=== PATIENT | female | born 1990 | race Caucasian/White ===

== ENCOUNTER → 2016-10-01 | Outpatient (CLI) | payer OTHER | LOC: MW.CHOBGYN 17:52 | PROVIDERS: ATTEND Obstetrics & Gynecology | DX: Z34.90 Encounter for supervision of normal pregnancy, unspecified, unspecified trimester (principal) | CPT/HCPCS: 87480; 87510; 87660 ==

== ENCOUNTER → 2016-11-03 | Outpatient (CLI) | payer OTHER | LOC: MW.CHOBGYN 07:52 | PROVIDERS: ATTEND Obstetrics & Gynecology | DX: Z34.90 Encounter for supervision of normal pregnancy, unspecified, unspecified trimester (principal) | CPT/HCPCS: 81003 ==

== ENCOUNTER 2017-03-31 09:50 | Observation (INO) | payer OTHER ==
[2017-03-31] MEDS: Betamethasone Acetate/Betamethasone Sod Phosphate 30 MG/5 ML MDV IM SCH (13:39)
[2017-03-31] MEDS ORDERED: Nicotine 14 MG/24 Hr Patch TRDERM ONE (19:58)
[2017-04-01 06:13] LABS: CHLORIDE,CL 108 mmol/L (98-110); SODIUM,NA 136 mmol/L (136-146)
--- NOTE | 2017-04-01 10:48 | US ---
EXAMINATION: Biophysical profile HISTORY: Abnormal biophysical profile COMPARISON: 03/31/2017 TECHNIQUE: Grayscale, color Doppler, and spectral Doppler images obtained transabdominally. FINDINGS: There is a single live intrauterine . The amniotic fluid level is normal. Heart ra te is 128 bpm. There is positive breathing, movement, and tone. IMPRESSION: Biophysical profile 01/20.
[2017-04-01] MEDS ORDERED: Nicotine 14 MG/24 Hr Patch TRDERM ONE (11:21)
[2017-04-01] MEDS: Betamethasone Acetate/Betamethasone Sod Phosphate 30 MG/5 ML MDV IM SCH (14:02)
== END 2017-04-01 21:00 | disposition home or self-care (01) ==
LOC: MW.OBCHECK 09:50 → MW.OB 10:04 → MW.OBCHECK 13:43
PROVIDERS: ADMIT Obstetrics & Gynecology; ATTEND Obstetrics & Gynecology
DX: O14.03 Mild to moderate pre-eclampsia, third trimester (principal); O13.3 Gestational [pregnancy-induced] hypertension without significant proteinuria, third trimester; Z3A.36 36 weeks gestation of pregnancy; Z88.1 Allergy status to other antibiotic agents; Z98.890 Other specified postprocedural states; F17.210 Nicotine dependence, cigarettes, uncomplicated
CPT/HCPCS: 36415; 59025; 76818; 76819; 80053; 84550; 85025; 85027; 85384; 85610; 85730; 96372; A9270; G0378; J0702

== ENCOUNTER 2017-04-02 14:57 | Inpatient (IN) | payer OTHER ==
[2017-04-02] MEDS ORDERED: Sodium Chloride 0.9% 10 ML Syringe FLUSH PRN ×2 (15:02→18:39)
[2017-04-02] MEDS ORDERED: Lidocaine 1% 50 ML MDV INJECT PRN (15:02)
[2017-04-02] MEDS ORDERED: Butorphanol 1 MG/ML SDV IVPUSH PRN (15:02)
[2017-04-02] MEDS ORDERED: Water For Irrigation,Sterile 1,000 ML Container IRR PRN (15:02)
[2017-04-02] MEDS ORDERED: Misoprostol 200 MCG Tab PO PRN (15:02)
[2017-04-02] MEDS ORDERED: Nalbuphine 10 MG/1 ML Vial IVPUSH PRN (15:02)
[2017-04-02] MEDS ORDERED: Sodium Chloride 0.9% 2.5 ML Syringe FLUSH PRN ×2 (15:02→18:39)
[2017-04-02] MEDS ORDERED: Methylergonovine 0.2 MG/1 ML Amp IM PRN (15:02)
[2017-04-02] MEDS ORDERED: Carboprost Tromethamine 250 MCG/1 ML Amp IM PRN (15:02)
[2017-04-02] MEDS ORDERED: Oxytocin/0.9 % Sodium Chloride 30 UNIT/500 ML BAG IV SCH ×2 (15:15→18:45)
[2017-04-02] MEDS ORDERED: Terbutaline 1 MG/ML SDV SUBCUT PRN (18:36)
[2017-04-02] MEDS ORDERED: Magnesium Sulfate/Water 4 GM in Premix Bag 1 BAG IV ONE (18:39)
[2017-04-02] MEDS ORDERED: Calcium Gluconate 10% 1 GM/10 ML SDV IVPUSH PRN (18:39)
[2017-04-02 18:45] LABS: CHLORIDE,CL 108 mmol/L (98-110); SODIUM,NA 137 mmol/L (136-146)
[2017-04-02] MEDS ORDERED: Misoprostol 25 MCG (1/4 of 100 MCG) Tab VAG SCH (18:45)
[2017-04-02] MEDS ORDERED: Sodium Chloride 0.9% 1,000 ML IV SCH (19:00)
[2017-04-02] MEDS: Magnesium Sulfate/Water 40 GM/1,000 ML BAG IV SCH (19:47)
[2017-04-02] MEDS ORDERED: Nicotine 21 MG/24 Hr Patch TRDERM ONE (20:50)
--- NOTE | 2017-04-02 21:58 | HP ---
DATE OF : 1990 PRIMARY CARE PHYSICIAN: None PCP CHIEF COMPLAINT: Hypertension. HISTORY OF PRESENT ILLNESS: This is a 27-year-old female. She is G1, P0-0-0-1. She is currently at 36- 3/7th weeks' gestation. She has been monitored over the past week with elevated blood pressures and serial labs and 24-hour urine. She was observed over a 24- hour time period in the hospital. She presented to clinic appointment today with Susi Giraldo at which time, her blood pressure was 140/100 and was the same when repeated. Her AST at that time was elevated to 56, ALT was upper limits of normal at 40, and 24-hour urine was 264. She denies headache, blurred vision, or epigastric pain. Biophysical profile was 8/8. She was also noted to have a dysrhythmia in clinic. She was then sent to Labor and Delivery, where further evaluations revealed blood pressures from 126-156 systolic to 69- 87 diastolic. She had no clonus, but very brisk reflexes. She denied any headache or visual changes. She reports positive movement. No regular contractions. PAST MEDICAL HISTORY: Significant for depression. PAST SURGICAL HISTORY: Tonsillectomy in 1987. ALLERGIES: Suprax, ampicillin, and amoxicillin. MEDICATIONS: Sertraline 100 mg 1 p.o. daily and vitamins. SOCIAL HISTORY: She smokes about a pack a day. She denies use of any street drugs. When she is not , she drinks socially. care has been since 10 weeks gestation. Her baseline blood pressure was 110/70. LABORATORY STUDIES: Include blood type A positive, antibody negative, VDRL nonreactive, rubella immune, positive history of varicella immunization, hepatitis B negative, HIV negative, gonorrhea and Chlamydia negative, maternal serum AFP was normal, group B Strep negative, diabetes screen of 118. REVIEW OF SYSTEMS: CONSTITUTIONAL: Negative for headache or visual changes. Positive for increased swelling. DERMATOLOGIC: Negative. PULMONARY: Negative. CARDIOVASCULAR: Negative. GI: Negative. RHEUMATOLOGIC: Negative. PHYSICAL EXAMINATION: VITAL SIGNS: Temperature is 99.4, blood pressure range on Labor and Delivery is 126-156/69-87 with blood pressure in the clinic being 140/100, pulse is 71. heart tones 120s, moderate variability, reactive with occasional dysrhythmia. Contractions are none. GENERAL: She is alert and oriented, no acute distress. NECK: Supple without lymphadenopathy or thyromegaly. LUNGS: Clear bilaterally. CV: Regular rate without murmur. ABDOMEN: Soft, gravid, nontender. There is no epigastric tenderness. Uterine fundus is nontender. EXTREMITIES: Show 3+ edema. Deep tendon reflexes are 4+ bilaterally with no clonus. : Vaginal exam: Cervix is 1+, 70%, extremely anterior, soft, suspected occipitoposterior position. LABORATORY STUDIES: Included hemoglobin 12.1, hematocrit 35.1, platelet count of 249,000. AST 40, ALT 56. 24-hour urine protein was 264 mg. Most recent biophysical profile was 8/8. Estimated weight of 2820 g. On 03/31/2017, biophysical profile was 4/8. ASSESSMENT AND PLAN: 1. A 36-3/7th-week intrauterine with preeclampsia, increasing liver function studies. She is admitted to Labor and Delivery. We will start on magnesium. She has consented for Cytotec understanding that it is an off- label use, and we will start Pitocin when cervix is favorable. Repeat laboratory studies in the morning. 2. Group B Strep negative. 3. Has received 2 doses of betamethasone for lung maturity. 4. Depression. Continue sertraline. PADMINI / KM /[id number]
[2017-04-03] MEDS: Misoprostol 25 MCG (1/4 of 100 MCG) Tab VAG PRN ×2 (02:16→08:30)
[2017-04-03 07:22] LABS: CHLORIDE,CL 106 mmol/L (98-110); SODIUM,NA 135 mmol/L (136-146)
--- NOTE | 2017-04-03 08:55 | PCM.PNLD ---
<Josue Delgado - Last Filed: 04/03/17 08:47> Labor Progress Note - VS & Meds Vital Signs: BP 125/74 HR 70 Heart tones - 120 Active Medications: Current Medications Butorphanol Tartrate (Stadol) 1 mg IVPUSH ASDIRECTED PRN PRN Reason: Pain Calcium Gluconate (Calcium Gluconate) 1 gm IVPUSH ASDIRECTED PRN PRN Reason: respiratory distress Carboprost Tromethamine (Hemabate Ds) 250 mcg IM ASDIRECTED PRN PRN Reason: Post Hemorrhage Oxytocin/Sodium Chloride (Oxytocin 30 Unit/500 Ml-Ns) 30 unit in 500 mls @ 999 mls/hr IV TITRATE MALIK Oxytocin/Sodium Chloride (Oxytocin 30 Unit/500 Ml-Ns) 30 unit in 500 mls @ 2 mls/hr IV TITRATE MALIK; 2 MUNITS/MIN PRN Reason: Protocol Magnesium Sulfate (Magnesium Sulfate 40 Gm In Water 1000 Ml) 40 gm in 1,000 mls @ 50 mls/hr IV ASDIRECTED MALIK; 2 GM/HR PRN Reason: Protocol Last Admin: 04/02/17 19:47 Dose: 2 gm/hr, 50 mls/hr Sodium Chloride (Normal Saline) 1,000 mls @ 75 mls/hr IV ASDIRECTED MALIK Last Admin: 04/02/17 19:25 Dose: 75 mls/hr Lidocaine HCl (Xylocaine 1%) 50 ml INJECT .ONCE PRN PRN Reason: Laceration repair Methylergonovine Maleate (Methergine) 0.2 mg IM ASDIRECTED PRN PRN Reason: Post Hemorrhage Miscellaneous Information (Remove Patch) 1 ea TRDERM ONETIME ONE Stop: 04/03/17 21:01 Misoprostol (Cytotec) 200 mcg PO .ONCE PRN PRN Reason: Post Hemorrhage Misoprostol (Cytotec) 25 mcg VAG .ONCE MALIK Last Admin: 04/02/17 20:05 Dose: 25 mcg Misoprostol (Cytotec) 25 mcg VAG Q6H PRN PRN Reason: Cervical Ripening Last Admin: 04/03/17 08:30 Dose: 25 mcg Nalbuphine HCl (Nubain) 10 mg IVPUSH ASDIRECTED PRN PRN Reason: Pain (severe 7-10) Sodium Chloride (Saline Flush) 10 ml FLUSH ASDIRECTED PRN PRN Reason: Keep Vein Open Sodium Chloride (Saline Flush) 2.5 ml FLUSH ASDIRECTED PRN PRN Reason: Keep Vein Open Sterile Water (Sterile Water For Irrigation) 1,000 ml IRR ASDIRECTED PRN PRN Reason: delivery Terbutaline Sulfate (Brethine) 0.25 mg SUBCUT ASDIRECTED PRN PRN Reason: Tacysystole Discontinued Medications Lactated Ringer's (Ringers, Lactated) 1,000 mls @ 150 mls/hr IV ASDIRECTED MALIK Magnesium Sulfate 4 gm/ Premix 100 mls @ 300 mls/hr IV .BOLUS ONE Stop: 04/02/17 18:58 Last Admin: 04/02/17 19:25 Dose: 300 mls/hr Nicotine (Habitrol) 21 mg TRDERM ONETIME ONE Stop: 04/02/17 20:51 - Uterine Contractions Uterine Monitoring Mode: External Stigler Contraction Intensity: Mild Uterine Resting Tone: Soft - Monitoring Monitor Mode: External Ultrasound Heart Rate (FHR) Baseline: 120 Heart Rate (FHR) Variability: Minimal (0-5 bpm) Decelerations: None - Vaginal Exam Dilation (cm): 1+ Effacement (Percent): 80 Station: -2 Cervical Position: Anterior Sterile Vaginal Exam Performed By: Nimco Ni - Labor Progress (Free Text) Labor Progress: Patient denies any vision changes, headache, or epigastric pain. Patient is tolerating magnesium well and levels are within therapeutic limits. She does admit to slight difficulty breathing while lying down and is still hyper- reflexive. Her cervical change is minimal so another Cytotec was interested by Dr. Ni to encourage ripening. Continue /labor cares with monitoring. <Nimco Ni - Last Filed: 04/03/17 09:02> Labor Progress Note - VS & Meds Active Medications: Current Medications Butorphanol Tartrate (Stadol) 1 mg IVPUSH ASDIRECTED PRN PRN Reason: Pain Calcium Gluconate (Calcium Gluconate) 1 gm IVPUSH ASDIRECTED PRN PRN Reason: respiratory distress Carboprost Tromethamine (Hemabate Ds) 250 mcg IM ASDIRECTED PRN PRN Reason: Post Hemorrhage Oxytocin/Sodium Chloride (Oxytocin 30 Unit/500 Ml-Ns) 30 unit in 500 mls @ 999 mls/hr IV TITRATE MALIK Oxytocin/Sodium Chloride (Oxytocin 30 Unit/500 Ml-Ns) 30 unit in 500 mls @ 2 mls/hr IV TITRATE MALIK; 2 MUNITS/MIN PRN Reason: Protocol Magnesium Sulfate (Magnesium Sulfate 40 Gm In Water 1000 Ml) 40 gm in 1,000 mls @ 50 mls/hr IV ASDIRECTED MALIK; 2 GM/HR PRN Reason: Protocol Last Admin: 04/02/17 19:47 Dose: 2 gm/hr, 50 mls/hr Sodium Chloride (Normal Saline) 1,000 mls @ 75 mls/hr IV ASDIRECTED MALIK Last Admin: 04/02/17 19:25 Dose: 75 mls/hr Lidocaine HCl (Xylocaine 1%) 50 ml INJECT .ONCE PRN PRN Reason: Laceration repair Methylergonovine Maleate (Methergine) 0.2 mg IM ASDIRECTED PRN PRN Reason: Post Hemorrhage Miscellaneous Information (Remove Patch) 1 ea TRDERM ONETIME ONE Stop: 04/03/17 21:01 Misoprostol (Cytotec) 200 mcg PO .ONCE PRN PRN Reason: Post Hemorrhage Misoprostol (Cytotec) 25 mcg VAG .ONCE MALIK Last Admin: 04/02/17 20:05 Dose: 25 mcg Misoprostol (Cytotec) 25 mcg VAG Q6H PRN PRN Reason: Cervical Ripening Last Admin: 04/03/17 08:30 Dose: 25 mcg Nalbuphine HCl (Nubain) 10 mg IVPUSH ASDIRECTED PRN PRN Reason: Pain (severe 7-10) Sodium Chloride (Saline Flush) 10 ml FLUSH ASDIRECTED PRN PRN Reason: Keep Vein Open Sodium Chloride (Saline Flush) 2.5 ml FLUSH ASDIRECTED PRN PRN Reason: Keep Vein Open Sterile Water (Sterile Water For Irrigation) 1,000 ml IRR ASDIRECTED PRN PRN Reason: delivery Terbutaline Sulfate (Brethine) 0.25 mg SUBCUT ASDIRECTED PRN PRN Reason: Tacysystole Discontinued Medications Lactated Ringer's (Ringers, Lactated) 1,000 mls @ 150 mls/hr IV ASDIRECTED [facility] Magnesium Sulfate 4 gm/ Premix 100 mls @ 300 mls/hr IV .BOLUS ONE Stop: 04/02/17 18:58 Last Admin: 04/02/17 19:25 Dose: 300 mls/hr Nicotine (Habitrol) 21 mg TRDERM ONETIME ONE Stop: 04/02/17 20:51 Nicotine (Habitrol) 21 mg TRDERM ONETIME ONE Stop: 04/03/17 09:01 - Labor Progress (Free Text) Labor Progress: Patient examined and agree with above.
[2017-04-03] MEDS ORDERED: Nicotine 21 MG/24 Hr Patch TRDERM ONE (09:00)
[2017-04-03] MEDS: Lactated Ringers 1,000 ML IV SCH ×2 (12:46→16:06)
[2017-04-03] MEDS: Magnesium Sulfate/Water 40 GM/1,000 ML BAG IV SCH (15:21)
[2017-04-03] MEDS ORDERED: Ropivacaine 0.2% 2 MG/ML 20 ML SDV ONE (15:58)
[2017-04-03] MEDS ORDERED: Ropivacaine HCl/PF 100 ML ONE (15:58)
[2017-04-03] MEDS ORDERED: fentaNYL 100 MCG/2 ML SDV ONE (15:59)
--- NOTE | 2017-04-03 17:22 | PCM.PREANE ---
Preanesthetic Assessment - Procedure Proposed Procedure: Continuous Labor Epidural - Anesthesia/Transfusion/Family Hx Anesthesia History: Prior Anesthesia Without Reaction Family History of Anesthesia Reaction: No Transfusion History: No Prior Transfusion(s) - Review of Systems General: No Symptoms Pulmonary: No Symptoms Cardiovascular: No Symptoms Gastrointestinal: No Symptoms Neurological: No Symptoms Other: Reports: None - Physical Assessment O2 Sat by Pulse Oximetry: 92 Respiratory Rate: 24 Blood Pressure: 136/88 Height: 1.68 m Weight: 98.43 kg ASA Class: 2 Mental Status: Alert & Oriented x3 Airway Class: Mallampati = 1 Dentition: Reports: Normal Dentition Thyro-Mental Finger Breadths: 4 Mouth Opening Finger Breadths: 3 ROM/Head Extension: Full Lungs: Clear to Auscultation Cardiovascular: Regular Rate - Lab Values: Laboratory Last Values WBC 16.14 K/uL (4.0-11.0) H 04/03/17 06:49 RBC 3.86 M/uL (4.30-5.90) L 04/03/17 06:49 Hgb 12.7 g/dL (12.0-16.0) 04/03/17 06:49 Hct 37.2 % (36.0-46.0) 04/03/17 06:49 MCV 96.4 fL (80.0-98.0) 04/03/17 06:49 MCH 32.9 pg (27.0-32.0) H 04/03/17 06:49 MCHC 34.1 g/dL (31.0-37.0) 04/03/17 06:49 RDW Std Deviation 50.5 fl (28.0-62.0) 04/03/17 06:49 RDW Coeff of Hitesh 15 % (11.0-15.0) 04/03/17 06:49 Plt Count 274 K/uL (150-400) 04/03/17 06:49 MPV 10.60 fL (7.40-12.00) 04/03/17 06:49 Neutrophils % (Manual) 84 % (48.0-80.0) H 04/02/17 18:14 Band Neutrophils % 3 % 04/02/17 18:14 Lymphocytes % (Manual) 9 % (16.0-40.0) L 04/02/17 18:14 Monocytes % (Manual) 3 % (0.0-15.0) 04/02/17 18:14 Basophils % (Manual) 1 % (0.0-1.5) 04/02/17 18:14 Nucleated RBC % 0.0 /100WBC 04/03/17 06:49 Absolute Seg Neuts 14.8 (1.4-5.7) H 04/02/17 18:14 Band Neutrophils # 0.5 04/02/17 18:14 Lymphocytes # (Manual) 1.6 (0.6-2.4) 04/02/17 18:14 Monocytes # (Manual) 0.5 (0.0-0.8) 04/02/17 18:14 Basophils # (Manual) 0.2 (0.0-0.1) H 04/02/17 18:14 Nucleated RBCs # 0 K/uL 04/03/17 06:49 Sodium 135 mmol/L (136-146) L 04/03/17 06:49 Potassium 4.1 mmol/L (3.5-5.1) 04/03/17 06:49 Chloride 106 mmol/L (98-110) 04/03/17 06:49 Carbon Dioxide 20 mmol/L (21-31) L 04/03/17 06:49 BUN 13 mg/dL (6.0-23.0) 04/03/17 06:49 Creatinine 0.6 mg/dL (0.6-1.5) 04/03/17 06:49 Est Cr Clr Drug Dosing 134.18 mL/min 04/03/17 06:49 Estimated GFR (MDRD) > 60.0 ml/min 04/03/17 06:49 Glucose 80 mg/dL (60-110) 04/03/17 06:49 Uric Acid 5.4 mg/dL (2.1-6.2) 04/03/17 06:49 Calcium 7.5 mg/dL (8.8-10.8) L 04/03/17 06:49 Magnesium 4.1 mEq/L (1.5-2.3) H 04/03/17 13:26 Total Bilirubin 0.2 mg/dL (0.1-1.5) 04/03/17 06:49 AST 13 IU/L (5-40) 04/03/17 06:49 ALT 13 IU/L (8-54) 04/03/17 06:49 Alkaline Phosphatase 95 (40-150) 04/03/17 06:49 Lactate Dehydrogenase 153 IU/L (125-220) 04/02/17 18:14 Total Protein 5.8 g/dL (6.0-8.0) L 04/03/17 06:49 Albumin 3.1 g/dL (3.5-5.0) L 04/03/17 06:49 Globulin 2.7 g/dL (2.0-3.5) 04/03/17 06:49 Albumin/Globulin Ratio 1.2 (1.3-2.8) L 04/03/17 06:49 Blood Type A POSITIVE 04/02/17 15:27 Antibody Screen NEGATIVE 04/02/17 15:27 - Allergies Allergies/Adverse Reactions: Allergies Allergy/AdvReac Type Severity Reaction Status Date / Time amoxicillin Allergy Cannot Verified 03/31/17 13:38 Remember ampicillin Allergy Cannot Verified 03/31/17 13:38 Remember - Blood Product(s) Available: None - Anesthesia Plan Pre-Op Medication Ordered: None - Acknowledgements Anesthesia Type Planned: Epidural Pt an Appropriate Candidate for the Planned Anesthesia: Yes Alternatives and Risks of Anesthesia Discussed w Pt/Guardian: Yes Pt/Guardian Understands and Agrees with Anesthesia Plan: Yes PreAnesthesia Questionnaire IN [employer] History: Reports: Neurological History: Reports: Migraines Psychiatric History: Reports: Depression - Infectious Disease History Infectious Disease History: Reports: Chicken Pox, Influenza - SUBSTANCE USE Smoking Status *Q: Current Every Day Smoker Tobacco Use Within Last Twelve Months: Cigarettes Second Hand Smoke Exposure: No Recreational Drug Use History: No - HOME MEDS Home Medications: Home Meds Vitamins 1 tab PO DAILY 03/31/17 [History] Sertraline [Zoloft] 100 mg PO DAILY 03/31/17 [History] - CURRENT (IN HOUSE) MEDS Current Meds: Current Medications Butorphanol Tartrate (Stadol) 1 mg IVPUSH ASDIRECTED PRN PRN Reason: Pain Calcium Gluconate (Calcium Gluconate) 1 gm IVPUSH ASDIRECTED PRN PRN Reason: respiratory distress Carboprost Tromethamine (Hemabate Ds) 250 mcg IM ASDIRECTED PRN PRN Reason: Post Hemorrhage Oxytocin/Sodium Chloride (Oxytocin 30 Unit/500 Ml-Ns) 30 unit in 500 mls @ 999 mls/hr IV TITRATE MALIK Oxytocin/Sodium Chloride (Oxytocin 30 Unit/500 Ml-Ns) 30 unit in 500 mls @ 2 mls/hr IV TITRATE MALIK; 2 MUNITS/MIN PRN Reason: Protocol Last Titration: 04/03/17 16:11 Dose: 12 munits/min, 12 mls/hr Magnesium Sulfate (Magnesium Sulfate 40 Gm In Water 1000 Ml) 40 gm in 1,000 mls @ 50 mls/hr IV ASDIRECTED MALIK; 2 GM/HR PRN Reason: Protocol Last Admin: 04/03/17 15:21 Dose: 2 gm/hr, 50 mls/hr Sodium Chloride (Normal Saline) 1,000 mls @ 75 mls/hr IV ASDIRECTED MALIK Last Admin: 04/02/17 19:25 Dose: 75 mls/hr Lidocaine HCl (Xylocaine 1%) 50 ml INJECT .ONCE PRN PRN Reason: Laceration repair Methylergonovine Maleate (Methergine) 0.2 mg IM ASDIRECTED PRN PRN Reason: Post Hemorrhage Miscellaneous Information (Remove Patch) 1 ea TRDERM ONETIME ONE Stop: 04/03/17 21:01 Misoprostol (Cytotec) 200 mcg PO .ONCE PRN PRN Reason: Post Hemorrhage Misoprostol (Cytotec) 25 mcg VAG .ONCE MALIK Last Admin: 04/02/17 20:05 Dose: 25 mcg Misoprostol (Cytotec) 25 mcg VAG Q6H PRN PRN Reason: Cervical Ripening Last Admin: 04/03/17 08:30 Dose: 25 mcg Nalbuphine HCl (Nubain) 10 mg IVPUSH ASDIRECTED PRN PRN Reason: Pain (severe 7-10) Sodium Chloride (Saline Flush) 10 ml FLUSH ASDIRECTED PRN PRN Reason: Keep Vein Open Last Admin: 04/03/17 12:45 Dose: 10 ml Sodium Chloride (Saline Flush) 2.5 ml FLUSH ASDIRECTED PRN PRN Reason: Keep Vein Open Sterile Water (Sterile Water For Irrigation) 1,000 ml IRR ASDIRECTED PRN PRN Reason: delivery Terbutaline Sulfate (Brethine) 0.25 mg SUBCUT ASDIRECTED PRN PRN Reason: Tacysystole Discontinued Medications Fentanyl (Sublimaze) Confirm Administered Dose 100 mcg .ROUTE .STK-MED ONE Stop: 04/03/17 16:00 Lactated Ringer's (Ringers, Lactated) 1,000 mls @ 150 mls/hr IV ASDIRECTED MALIK Last Infusion: 04/03/17 16:07 Dose: 999 mls/hr Magnesium Sulfate 4 gm/ Premix 100 mls @ 300 mls/hr IV .BOLUS ONE Stop: 04/02/17 18:58 Last Admin: 04/02/17 19:25 Dose: 300 mls/hr Ropivacaine (Naropin 0.2%) Confirm Administered Dose 100 mls @ as directed .ROUTE .STK-MED ONE Stop: 04/03/17 15:59 Nicotine (Habitrol) 21 mg TRDERM ONETIME ONE Stop: 04/02/17 20:51 Last Admin: 04/03/17 09:05 Dose: 21 mg Nicotine (Habitrol) 21 mg TRDERM ONETIME ONE Stop: 04/03/17 09:01 Ropivacaine (Naropin 0.2%) Confirm Administered Dose 20 ml .ROUTE .STK-MED ONE Stop: 04/03/17 15:59 - Pre-Procedure Checklist Chart Reviewed: Yes Consent Signed: Yes Labs Reviewed: Yes VS/FHR Reviewed: Yes Patient Identification Confirmation Method: Reports: ID Band Visual, Verbal Patient Pt an Appropriate Candidate for the Planned Anesthesia: Yes Alternatives and Risks of Anesthesia Discussed w Pt/Guardian: Yes - Procedure Procedure Start Date: 04/03/17 Procedure Start Time: 16:[address]: Reports: Blood Pressure, Heart Rate, SPO2 Functional IV: Yes Bolus Infused (fluid type and amount): 1000 ml LR Safety Measures: Reports: Patient Identified, Procedure Verified, Site Verified , Procedure Time Out Patient Position: Reports: Sitting Prep: Reports: Other (Chloroprep) Local Anesthetic: Reports: Intradermal Wheal w Lidocaine 1% (5 ml) Regional Placement Level: Reports: L3-4 Needle: Reports: 17 g Touhy Approach: Reports: Midline Technique: Reports: SIERRA Glass Syringe Parasthesia: Reports: None Fluid Obtained: Reports: None Catheter Depth at Skin (cm): 8 cm Test Dose Time: 16:15 Test Dose Medication: Reports: Lidocaine 1.5% w Epinephrine 1:200,000 Test Dose Response: Reports: Negative Loading Dose Time: 16:21 Loading Dose Medication: Naropin 0.2% Loading Dose Patient Position: Supine-HOB 20% up Continuous Infusion Start Time: 16:30 Continuous Infusion Medication: Naropin 0.2% Continuous Infusion Rate: 8 cc/hr Continuous Infusion PCS Bolus Option: 6 cc/hr Continuous Infusion Lockout Dose (cc/hr): 24 Patient Position Post Placement: Reports: Other (HOB 20% elevated) Post-procedure Pain Level: 1 Level Achieved: t8 VS and FHR Monitored in Unit Post Placement: Yes Procedure End Date: 04/03/17 Procedure End Time: 16:30 Procedure Comment: Pt tolerated well. Good analgesia. 17:38 dilated to 9 cm.
[2017-04-03] MEDS ORDERED: Bisacodyl 10 MG Supp RECTAL PRN (18:55)
[2017-04-03] MEDS ORDERED: Acetaminophen 500 MG Tab PO PRN ×2 (18:55)
[2017-04-03] MEDS ORDERED: Witch Hazel Medicated Pads 40/Jar TOP PRN (18:55)
[2017-04-03] MEDS ORDERED: Lanolin 100% Cream 7 GM Tube TOP PRN (18:55)
[2017-04-03] MEDS ORDERED: Docusate Sodium 100 MG Cap PO PRN (18:55)
[2017-04-03] MEDS ORDERED: Ibuprofen 400 MG Tab PO PRN (18:55)
[2017-04-03] MEDS ORDERED: oxyCODONE 5 MG Tab PO PRN (18:55)
[2017-04-03] MEDS ORDERED: Benzocaine/Menthol 20%-0.5% Spray 78 GM Cannister TOP PRN (18:55)
[2017-04-03] MEDS: Ibuprofen 800 MG Tab PO PRN (20:27)
--- NOTE | 2017-04-03 23:31 | OR ---
SURGEON: Dipti Gramajo M.D. DATE OF PROCEDURE: 04/03/2017 PREOPERATIVE DIAGNOSES: 1. 36 and 4 week intrauterine at term. 2. Preeclampsia. POSTOPERATIVE DIAGNOSES: 1. 36 and 4 week intrauterine at term. 2. Preeclampsia. PROCEDURE: Spontaneous vaginal delivery, second-degree midline laceration repair. ESTIMATED BLOOD LOSS: 300 mL. ANESTHESIA: Epidural. COMPLICATIONS: None known. FINDINGS: Viable male, scores 7 at 1 minute, 8 at 5 minutes. Weight 2970 g. Spontaneous delivery, intact placenta, 3-vessel cord. DISPOSITION: Infant nursery, mom in LDRP on magnesium prophylaxis. PROCEDURE DETAILS: Mona is a 27-year-old, G1, P0, at 36 and 4 weeks gestation who presented on the afternoon of 04/02/2017 with increasing blood pressures and proteinuria, therefore given abnormal 24-hour urine and progressively increasing blood pressures, she was admitted for induction. She underwent Cytotec ripening. I assumed care on the morning of 04/03/2017. At that time, she had received three doses of Cytotec, responded nicely to this. Shortly after noon, she was found to be 1 cm, 80% effaced, -2 station. Therefore, Pitocin was initiated. She had spontaneous rupture of membranes. Clear fluid was noted. heart tones 120s with variability. She became increasingly uncomfortable and underwent regional anesthesia in the form of epidural thereafter. Her blood pressures overall have been relatively stable, 130s/80s. The patient continued to progress nicely after receiving epidural. She progressed rather quickly to complete 100% effaced, +1 station. Shortly before 6:00 p.m., she became increasingly uncomfortable with contractions, pressure, and began pushing efforts. She pushed readily to a +4 station and was followed to a +3 station. I was called for delivery. Upon my arrival, the patient was placed in modified dorsal lithotomy position and was prepped and draped in usual aseptic manner. She pushed with the next two contractions, able to deliver infant's head atraumatically, spontaneously, followed by anterior shoulder push, remainder of body without difficulty. The infant's oropharynx and nares bulb suctioned. Cord clamped x2 and cut. was handed off to his mother with attending nursing staff at her side. Cord arterial, cord venous, cord blood samples were obtained. Light suprapubic pressure was applied while the placenta was delivered spontaneously intact. Vigorous fundal uterine massage was then applied while 30 units of Pitocin delivered in 500 mL of IV fluids. Upon inspection of cervix, outside of perineum, there was found to be a second-degree midline laceration and a midline periurethral laceration. Periurethral was repaired using 3-0 Vicryl with two [id number] sutures. Perineum was repaired using 3-0 Vicryl in usual fashion. Hemostasis appeared evident. Uterus remained firm. Sponge count and needle counts were correct. The patient remained in LDRP on magnesium prophylaxis and infant in nursery. LIBBY / KM /[id number]
[2017-04-04] MEDS: Ibuprofen 800 MG Tab PO PRN (03:37)
--- NOTE | 2017-04-04 07:35 | PCM.PNPP ---
- General Info Date of Service: 04/04/17 Functional Status: Reports: Pain Controlled, Tolerating Diet, Ambulating, Urinating - Review of Systems General: Denies: Fever, Weakness Pulmonary: Denies: Shortness of Breath Cardiovascular: Denies: Chest Pain, Palpitations, Lightheadedness Gastrointestinal: Denies: Nausea, Vomiting Genitourinary: Denies: Flank Pain Neurological: Reports: No Symptoms Psychiatric: Denies: Confusion - General Info Date of Service: 04/04/17 - Patient Data Vital Signs - Most Recent: Last Vital Signs Temp Pulse Resp 24 H 04/03/17 17:38 BP 136/88 04/03/17 17:38 Pulse Ox 92 L 04/03/17 17:38 Weight - Most Recent: 98.43 kg I&O - Last 24 Hours: Intake & Output 04/03/17 04/04/17 04/04/17 22:59 06:59 14:59 Intake Total 969 Output Total 1250 Balance -281 Lab Results - Last 24 Hours: Laboratory Results - last 24 hr 04/03/17 04/03/17 04/03/17 Range/Units 13:26 16:15 19:48 Magnesium 4.1 H 4.3 H (1.5-2.3) mEq/L Ur Collection Duration 24 Urine Total Volume 1800 (800-1800) Ur Total Protein Conc 28.0 H (0-14) mg/dL Ur Total Protein 24 Hr 504.0 mg/24HRS 04/04/17 Range/Units 01:42 Magnesium 4.4 H (1.5-2.3) mEq/L Ur Collection Duration Urine Total Volume (800-1800) Ur Total Protein Conc (0-14) mg/dL Ur Total Protein 24 Hr mg/24HRS Med Orders - Current: Current Medications Acetaminophen (Tylenol Extra Strength) 500 mg PO Q4H PRN PRN Reason: Pain Acetaminophen (Tylenol Extra Strength) 1,000 mg PO Q4H PRN PRN Reason: Pain Benzocaine/Menthol (Dermoplast Pain Relief 20%-0.5% [place]) 0 gm TOP ASDIRECTED PRN PRN Reason: Perineal Comfort Measure Last Admin: 04/03/17 22:30 Dose: 1 canister Bisacodyl (Dulcolax) 10 mg RECTAL .ONCE PRN PRN Reason: Constipation Calcium Gluconate (Calcium Gluconate) 1 gm IVPUSH ASDIRECTED PRN PRN Reason: respiratory distress Carboprost Tromethamine (Hemabate Ds) 250 mcg IM ASDIRECTED PRN PRN Reason: Post Hemorrhage Docusate Sodium (Colace) 100 mg PO BID PRN PRN Reason: Constipation Emollient Ointment (Lansinoh Hpa) 0 gm TOP ASDIRECTED PRN PRN Reason: Sore Nipples Oxytocin/Sodium Chloride (Oxytocin 30 Unit/500 Ml-Ns) 30 unit in 500 mls @ 999 mls/hr IV TITRATE MALIK Oxytocin/Sodium Chloride (Oxytocin 30 Unit/500 Ml-Ns) 30 unit in 500 mls @ 2 mls/hr IV TITRATE MALIK; 2 MUNITS/MIN PRN Reason: Protocol Last Titration: 04/03/17 16:11 Dose: 12 munits/min, 12 mls/hr Magnesium Sulfate (Magnesium Sulfate 40 Gm In Water 1000 Ml) 40 gm in 1,000 mls @ 50 mls/hr IV ASDIRECTED MALIK; 2 GM/HR PRN Reason: Protocol Last Admin: 04/03/17 15:21 Dose: 2 gm/hr, 50 mls/hr Sodium Chloride (Normal Saline) 1,000 mls @ 75 mls/hr IV ASDIRECTED MALIK Last Admin: 04/02/17 19:25 Dose: 75 mls/hr Ibuprofen (Motrin) 400 mg PO Q4H PRN PRN Reason: Pain Ibuprofen (Motrin) 800 mg PO Q6H PRN PRN Reason: Pain Last Admin: 04/04/17 03:37 Dose: 800 mg Methylergonovine Maleate (Methergine) 0.2 mg IM ASDIRECTED PRN PRN Reason: Post Hemorrhage Misoprostol (Cytotec) 200 mcg PO .ONCE PRN PRN Reason: Post Hemorrhage Oxycodone HCl (Oxycodone) 5 mg PO Q2H PRN PRN Reason: Pain Sodium Chloride (Saline Flush) 10 ml FLUSH ASDIRECTED PRN PRN Reason: Keep Vein Open Last Admin: 04/03/17 12:45 Dose: 10 ml Witch Radha (Tucks) 1 pad TOP ASDIRECTED PRN PRN Reason: comfort care Last Admin: 04/03/17 22:30 Dose: 1 tub Discontinued Medications Butorphanol Tartrate (Stadol) 1 mg IVPUSH ASDIRECTED PRN PRN Reason: Pain Fentanyl (Sublimaze) Confirm Administered Dose 100 mcg .ROUTE .STK-MED ONE Stop: 04/03/17 16:00 Last Admin: 04/04/17 00:01 Dose: Not Given Lactated Ringer's (Ringers, Lactated) 1,000 mls @ 150 mls/hr IV ASDIRECTED MALIK Last Infusion: 04/03/17 16:07 Dose: 999 mls/hr Magnesium Sulfate 4 gm/ Premix 100 mls @ 300 mls/hr IV .BOLUS ONE Stop: 04/02/17 18:58 Last Admin: 04/02/17 19:25 Dose: 300 mls/hr Ropivacaine (Naropin 0.2%) Confirm Administered Dose 100 mls @ as directed .ROUTE .STK-MED ONE Stop: 04/03/17 15:59 Last Admin: 04/04/17 00:01 Dose: Not Given Lidocaine HCl (Xylocaine 1%) 50 ml INJECT .ONCE PRN PRN Reason: Laceration repair Miscellaneous Information (Remove Patch) 1 ea TRDERM ONETIME ONE Stop: 04/03/17 21:01 Misoprostol (Cytotec) 25 mcg VAG .ONCE MALIK Last Admin: 04/02/17 20:05 Dose: 25 mcg Misoprostol (Cytotec) 25 mcg VAG Q6H PRN PRN Reason: Cervical Ripening Last Admin: 04/03/17 08:30 Dose: 25 mcg Nalbuphine HCl (Nubain) 10 mg IVPUSH ASDIRECTED PRN PRN Reason: Pain (severe 7-10) Nicotine (Habitrol) 21 mg TRDERM ONETIME ONE Stop: 04/02/17 20:51 Last Admin: 04/03/17 09:05 Dose: 21 mg Nicotine (Habitrol) 21 mg TRDERM ONETIME ONE Stop: 04/03/17 09:01 Ropivacaine (Naropin 0.2%) Confirm Administered Dose 20 ml .ROUTE .STK-MED ONE Stop: 04/03/17 15:59 Last Admin: 04/04/17 00:01 Dose: Not Given Sodium Chloride (Saline Flush) 2.5 ml FLUSH ASDIRECTED PRN PRN Reason: Keep Vein Open Sterile Water (Sterile Water For Irrigation) 1,000 ml IRR ASDIRECTED PRN PRN Reason: delivery Terbutaline Sulfate (Brethine) 0.25 mg SUBCUT ASDIRECTED PRN PRN Reason: Tacysystole - Infant Interaction Support Person: , Mother, Sister - Recovery Exam Fundal Tone: Firm Fundal Level: At Umbilicus Fundal Placement: Midline Lochia Amount: Scant Lochia Color: Rubra/Red Perineum Description: Other (see below) Other Perinuem Description: 2nd degree laceration Episiotomy/Laceration: Approximated Bladder Status: Voiding Urinary Elimination: Voided - Exam General: Alert, Oriented Lungs: Normal Respiratory Effort Cardiovascular: Regular Rate, Regular Rhythm GI/Abdominal Exam: Soft, Non-Tender Extremities: Pedal Edema (trace) Skin: Warm, Dry, Intact Neurological: No New Focal Deficit, Reflexes Equal Bilateral Psy/Mental Status: Alert, Normal Affect - Problem List & Annotations (1) Preeclampsia SNOMED Code(s): 601227284 Code(s): O14.90 - UNSPECIFIED PRE-ECLAMPSIA, UNSPECIFIED TRIMESTER Status: Acute Current Visit: Yes - Problem List Review Problem List Initiated/Reviewed/Updated: Yes - My Orders Last 24 Hours: My Active Orders 04/03/17 18:55 Patient Status [ADT] Routine May Shower [RC] ASDIRECTED Up ad [place] [RC] ASDIRECTED Vital Signs [RC] PER UNIT ROUTINE Acetaminophen [Tylenol Extra Strength] 1,000 mg PO Q4H PRN Acetaminophen [Tylenol Extra Strength] 500 mg PO Q4H PRN Benzocaine/Menthol [Dermoplast Pain Relief 20%-0.5% [place]] 0 gm TOP ASDIRECTED PRN Bisacodyl [Dulcolax] 10 mg RECTAL .ONCE PRN Docusate Sodium [Colace] 100 mg PO BID PRN Ibuprofen [Motrin] 400 mg PO Q4H PRN Ibuprofen [Motrin] 800 mg PO Q6H PRN Lanolin [Lansinoh HPA] See Dose Instructions TOP ASDIRECTED PRN Witch Radha [Tucks] 1 pad TOP ASDIRECTED PRN oxyCODONE 5 mg PO Q2H PRN Assess Lochia [WOMSER] Per Unit Routine Assess Uterine Involution [WOMSER] Per Unit Routine Peripheral IV Discontinue [OM.PC] Routine 04/03/17 18:56 Ice Therapy [OM.PC] Per Unit Routine Perineal Care [OM.PC] Per Unit Routine Sitz Bath [OM.PC] Per Unit Routine 04/03/17 19:33 Urinary Catheter Assessment [RC] ASDIRECTED 04/03/17 19:45 [place]arez Catheter Insertion [Insert Urinary Catheter] [OM.PC] Q24H 04/03/17 Dinner Regular Diet [DIET] 04/04/17 05:11 CBC W/O DIFF,HEMOGRAM [HEME] AM COMPREHENSIVE METABOLIC PN,CMP [CHEM] AM - Assessment Assessment:: PPD 1 status post Preeclampsia - Plan Plan:: Blood pressures remain stable in 120/50-60s. Urine output is good, 1250 mL for shift. Labs pending. If remain stable, will allow magnesium to be discontinued. Continue PP cares. Monitor blood pressures today.
[2017-04-04 08:02] LABS: CHLORIDE,CL 108 mmol/L (98-110); SODIUM,NA 137 mmol/L (136-146)
--- NOTE | 2017-04-04 09:35 | PCM48HPAN ---
Post Anesthesia Note - EVALUATION WITHIN 48HRS OF ANESTHETIC Vital Signs in Normal Range: Yes Patient Participated in Evaluation: Yes Respiratory Function Stable: Yes Airway Patent: Yes Cardiovascular Function Stable: Yes Hydration Status Stable: Yes Pain Control Satisfactory: Yes Nausea and Vomiting Control Satisfactory: Yes Mental Status Recovered: Yes - COMMENTS/OBSERVATIONS Free Text/Narrative:: Did well. No problems noted post. Satisfactory procedure.
[2017-04-04] MEDS: Sertraline 100 MG Tab PO SCH (21:35)
--- NOTE | 2017-04-05 08:44 | PCM.PNPP ---
- General Info Date of Service: 04/05/17 Subjective Update: patient denies headache or visual changes. No light headedness. She has been tearful and feeling a bit overwhelmed. Resumed sertraline last night. Blood pressures more elevated yesterday and today. She continue to void easily. Ambulating, lochia minimal. Working with . Functional Status: Reports: Pain Controlled, Tolerating Diet, Ambulating, Urinating - Review of Systems General: Denies: Fever Pulmonary: Denies: Shortness of Breath Cardiovascular: Denies: Chest Pain, Palpitations, Lightheadedness Gastrointestinal: Denies: Abdominal Pain Genitourinary: Denies: Flank Pain Psychiatric: Reports: Mood Lability - General Info Date of Service: 04/05/17 - Patient Data Vital Signs - Most Recent: Last Vital Signs Temp 36.1 C 04/05/17 04:19 Pulse 69 04/05/17 04:19 Resp 14 04/05/17 04:19 BP 146/82 H 04/05/17 04:19 Pulse Ox 97 04/05/17 04:19 Weight - Most Recent: 98.43 kg Med Orders - Current: Current Medications Acetaminophen (Tylenol Extra Strength) 500 mg PO Q4H PRN PRN Reason: Pain Acetaminophen (Tylenol Extra Strength) 1,000 mg PO Q4H PRN PRN Reason: Pain Last Admin: 04/04/17 07:49 Dose: 1,000 mg Benzocaine/Menthol (Dermoplast Pain Relief 20%-0.5% [place]) 0 gm TOP ASDIRECTED PRN PRN Reason: Perineal Comfort Measure Last Admin: 04/03/17 22:30 Dose: 1 canister Bisacodyl (Dulcolax) 10 mg RECTAL .ONCE PRN PRN Reason: Constipation Calcium Gluconate (Calcium Gluconate) 1 gm IVPUSH ASDIRECTED PRN PRN Reason: respiratory distress Carboprost Tromethamine (Hemabate Ds) 250 mcg IM ASDIRECTED PRN PRN Reason: Post Hemorrhage Docusate Sodium (Colace) 100 mg PO BID PRN PRN Reason: Constipation Last Admin: 04/04/17 09:23 Dose: 100 mg Emollient Ointment (Lansinoh Hpa) 0 gm TOP ASDIRECTED PRN PRN Reason: Sore Nipples Oxytocin/Sodium Chloride (Oxytocin 30 Unit/500 Ml-Ns) 30 unit in 500 mls @ 999 mls/hr IV TITRATE MALIK Oxytocin/Sodium Chloride (Oxytocin 30 Unit/500 Ml-Ns) 30 unit in 500 mls @ 2 mls/hr IV TITRATE MALIK; 2 MUNITS/MIN PRN Reason: Protocol Last Titration: 04/03/17 16:11 Dose: 12 munits/min, 12 mls/hr Magnesium Sulfate (Magnesium Sulfate 40 Gm In Water 1000 Ml) 40 gm in 1,000 mls @ 50 mls/hr IV ASDIRECTED MALIK; 2 GM/HR PRN Reason: Protocol Last Admin: 04/03/17 15:21 Dose: 2 gm/hr, 50 mls/hr Sodium Chloride (Normal Saline) 1,000 mls @ 75 mls/hr IV ASDIRECTED MALIK Last Admin: 04/02/17 19:25 Dose: 75 mls/hr Ibuprofen (Motrin) 400 mg PO Q4H PRN PRN Reason: Pain Ibuprofen (Motrin) 800 mg PO Q6H PRN PRN Reason: Pain Last Admin: 04/04/17 03:37 Dose: 800 mg Methylergonovine Maleate (Methergine) 0.2 mg IM ASDIRECTED PRN PRN Reason: Post Hemorrhage Misoprostol (Cytotec) 200 mcg PO .ONCE PRN PRN Reason: Post Hemorrhage Oxycodone HCl (Oxycodone) 5 mg PO Q2H PRN PRN Reason: Pain Sertraline HCl (Zoloft) 100 mg PO BEDTIME MALIK Last Admin: 04/04/17 21:35 Dose: 100 mg Sodium Chloride (Saline Flush) 10 ml FLUSH ASDIRECTED PRN PRN Reason: Keep Vein Open Last Admin: 04/03/17 12:45 Dose: 10 ml Witch Radha (Tucks) 1 pad TOP ASDIRECTED PRN PRN Reason: comfort care Last Admin: 04/03/17 22:30 Dose: 1 tub Discontinued Medications Butorphanol Tartrate (Stadol) 1 mg IVPUSH ASDIRECTED PRN PRN Reason: Pain Fentanyl (Sublimaze) Confirm Administered Dose 100 mcg .ROUTE .[facility]-MED ONE Stop: 04/03/17 16:00 Last Admin: 04/04/17 00:01 Dose: Not Given Lactated Ringer's (Ringers, Lactated) 1,000 mls @ 150 mls/hr IV ASDIRECTED MALIK Last Infusion: 04/03/17 16:07 Dose: 999 mls/hr Magnesium Sulfate 4 gm/ Premix 100 mls @ 300 mls/hr IV .BOLUS ONE Stop: 04/02/17 18:58 Last Admin: 04/02/17 19:25 Dose: 300 mls/hr Ropivacaine (Naropin 0.2%) Confirm Administered Dose 100 mls @ as directed .ROUTE .STK-MED ONE Stop: 04/03/17 15:59 Last Admin: 04/04/17 00:01 Dose: Not Given Lidocaine HCl (Xylocaine 1%) 50 ml INJECT .ONCE PRN PRN Reason: Laceration repair Miscellaneous Information (Remove Patch) 1 ea TRDERM ONETIME ONE Stop: 04/03/17 21:01 Misoprostol (Cytotec) 25 mcg VAG .ONCE MALIK Last Admin: 04/02/17 20:05 Dose: 25 mcg Misoprostol (Cytotec) 25 mcg VAG Q6H PRN PRN Reason: Cervical Ripening Last Admin: 04/03/17 08:30 Dose: 25 mcg Nalbuphine HCl (Nubain) 10 mg IVPUSH ASDIRECTED PRN PRN Reason: Pain (severe 7-10) Nicotine (Habitrol) 21 mg TRDERM ONETIME ONE Stop: 04/02/17 20:51 Last Admin: 04/03/17 09:05 Dose: 21 mg Nicotine (Habitrol) 21 mg TRDERM ONETIME ONE Stop: 04/03/17 09:01 Ropivacaine (Naropin 0.2%) Confirm Administered Dose 20 ml .ROUTE .STK-MED ONE Stop: 04/03/17 15:59 Last Admin: 04/04/17 00:01 Dose: Not Given Sodium Chloride (Saline Flush) 2.5 ml FLUSH ASDIRECTED PRN PRN Reason: Keep Vein Open Sterile Water (Sterile Water For Irrigation) 1,000 ml IRR ASDIRECTED PRN PRN Reason: delivery Terbutaline Sulfate (Brethine) 0.25 mg SUBCUT ASDIRECTED PRN PRN Reason: Tacysystole - Interaction Infant Disposition, : [place] in Room with Family Infant Interaction: Holding Infant Infant Feeding: Attempted ; Nursed Fair/Poor Support Person: , Mother, Sister - Recovery Exam Fundal Tone: Firm Fundal Level: At Umbilicus Fundal Placement: Midline Lochia Amount: Scant Lochia Color: Rubra/Red Perineum Description: Intact, Minimal Bruising/Swelling Other Perinuem Description: 2nd degree laceration Episiotomy/Laceration: Approximated Bladder Status: Voiding Urinary Elimination: Voided - Exam General: Alert, Oriented Lungs: Normal Respiratory Effort Cardiovascular: Regular Rate, Regular Rhythm GI/Abdominal Exam: Soft, No Distention Extremities: Pedal Edema (1+). No: Charissa's Sign Skin: Warm, Dry Psy/Mental Status: Alert, Labile Mood - Problem List & Annotations (1) Preeclampsia SNOMED Code(s): 861205776 Code(s): O14.90 - UNSPECIFIED PRE-ECLAMPSIA, UNSPECIFIED TRIMESTER Status: Acute Current Visit: Yes - Problem List Review Problem List Initiated/Reviewed/Updated: Yes - My Orders Last 24 Hours: My Active Orders 04/04/17 21:00 Sertraline [Zoloft] 100 mg PO BEDTIME - Assessment Assessment:: PPD 2 status post Preeclampsia--blood pressures remain elevated Tobacco dependence Depression/anxiety disorder - Plan Plan:: Blood pressures became more elevated yesterday and through the night in the 130- 150s/80-90s range. Given persistently elevated pressures, will start beta keli and monitor. Smoking cessation advised, discussed weaning to less than 5 cigarettes per day since patient has removed nicotine patch. Patient has resumed her sertraline--discussed monitoring mood closely as may need dose adjustment in period. Patient and voice their understanding to plan of care and are agreeable. Dr Arciniega/João Giraldo to assume care in am.
[2017-04-05] MEDS: Labetalol 100 MG Tab PO SCH ×2 (10:09→21:48)
[2017-04-05] MEDS: Sertraline 100 MG Tab PO SCH (22:01)
[2017-04-06] MEDS: Labetalol 100 MG Tab PO SCH (08:36)
--- NOTE | 2017-04-06 09:29 | PCM.PNPP ---
- General Info Date of Service: 04/06/17 Functional Status: Reports: Pain Controlled - Review of Systems General: Reports: No Symptoms HEENT: Reports: No Symptoms Pulmonary: Reports: No Symptoms Cardiovascular: Reports: No Symptoms Gastrointestinal: Reports: No Symptoms Genitourinary: Reports: No Symptoms Musculoskeletal: Reports: No Symptoms Skin: Reports: No Symptoms Neurological: Reports: No Symptoms Psychiatric: Reports: No Symptoms - General Info Date of Service: 04/06/17 - Patient Data Vital Signs - Most Recent: Last Vital Signs Temp 36.8 C 04/06/17 08:36 Pulse 71 04/06/17 08:36 Resp 18 04/06/17 08:36 BP 146/99 H 04/06/17 08:36 Pulse Ox 98 04/06/17 08:36 Weight - Most Recent: 98.43 kg Med Orders - Current: Current Medications Acetaminophen (Tylenol Extra Strength) 500 mg PO Q4H PRN PRN Reason: Pain Acetaminophen (Tylenol Extra Strength) 1,000 mg PO Q4H PRN PRN Reason: Pain Last Admin: 04/04/17 07:49 Dose: 1,000 mg Benzocaine/Menthol (Dermoplast Pain Relief 20%-0.5% [place]) 0 gm TOP ASDIRECTED PRN PRN Reason: Perineal Comfort Measure Last Admin: 04/03/17 22:30 Dose: 1 canister Bisacodyl (Dulcolax) 10 mg RECTAL .ONCE PRN PRN Reason: Constipation Calcium Gluconate (Calcium Gluconate) 1 gm IVPUSH ASDIRECTED PRN PRN Reason: respiratory distress Carboprost Tromethamine (Hemabate Ds) 250 mcg IM ASDIRECTED PRN PRN Reason: Post Hemorrhage Docusate Sodium (Colace) 100 mg PO BID PRN PRN Reason: Constipation Last Admin: 04/04/17 09:23 Dose: 100 mg Emollient Ointment (Lansinoh Hpa) 0 gm TOP ASDIRECTED PRN PRN Reason: Sore Nipples Oxytocin/Sodium Chloride (Oxytocin 30 Unit/500 Ml-Ns) 30 unit in 500 mls @ 999 mls/hr IV TITRATE MALIK Oxytocin/Sodium Chloride (Oxytocin 30 Unit/500 Ml-Ns) 30 unit in 500 mls @ 2 mls/hr IV TITRATE MALIK; 2 MUNITS/MIN PRN Reason: Protocol Last Titration: 04/03/17 16:11 Dose: 12 munits/min, 12 mls/hr Magnesium Sulfate (Magnesium Sulfate 40 Gm In Water 1000 Ml) 40 gm in 1,000 mls @ 50 mls/hr IV ASDIRECTED MALIK; 2 GM/HR PRN Reason: Protocol Last Admin: 04/03/17 15:21 Dose: 2 gm/hr, 50 mls/hr Sodium Chloride (Normal Saline) 1,000 mls @ 75 mls/hr IV ASDIRECTED MALIK Last Admin: 04/02/17 19:25 Dose: 75 mls/hr Ibuprofen (Motrin) 400 mg PO Q4H PRN PRN Reason: Pain Ibuprofen (Motrin) 800 mg PO Q6H PRN PRN Reason: Pain Last Admin: 04/04/17 03:37 Dose: 800 mg Labetalol HCl (Normodyne) 100 mg PO BID [facility] Last Admin: 04/06/17 08:36 Dose: 100 mg Methylergonovine Maleate (Methergine) 0.2 mg IM ASDIRECTED PRN PRN Reason: Post Hemorrhage Misoprostol (Cytotec) 200 mcg PO .ONCE PRN PRN Reason: Post Hemorrhage Oxycodone HCl (Oxycodone) 5 mg PO Q2H PRN PRN Reason: Pain Sertraline HCl (Zoloft) 100 mg PO BEDTIME [facility] Last Admin: 04/05/17 22:01 Dose: 100 mg Sodium Chloride (Saline Flush) 10 ml FLUSH ASDIRECTED PRN PRN Reason: Keep Vein Open Last Admin: 04/03/17 12:45 Dose: 10 ml Witch Radha (Tucks) 1 pad TOP ASDIRECTED PRN PRN Reason: comfort care Last Admin: 04/03/17 22:30 Dose: 1 tub Discontinued Medications Butorphanol Tartrate (Stadol) 1 mg IVPUSH ASDIRECTED PRN PRN Reason: Pain Fentanyl (Sublimaze) Confirm Administered Dose 100 mcg .ROUTE .[facility]-MED ONE Stop: 04/03/17 16:00 Last Admin: 04/04/17 00:01 Dose: Not Given Lactated Ringer's (Ringers, Lactated) 1,000 mls @ 150 mls/hr IV ASDIRECTED MALIK Last Infusion: 04/03/17 16:07 Dose: 999 mls/hr Magnesium Sulfate 4 gm/ Premix 100 mls @ 300 mls/hr IV .BOLUS ONE Stop: 04/02/17 18:58 Last Admin: 04/02/17 19:25 Dose: 300 mls/hr Ropivacaine (Naropin 0.2%) Confirm Administered Dose 100 mls @ as directed .ROUTE .STK-MED ONE Stop: 04/03/17 15:59 Last Admin: 04/04/17 00:01 Dose: Not Given Lidocaine HCl (Xylocaine 1%) 50 ml INJECT .ONCE PRN PRN Reason: Laceration repair Miscellaneous Information (Remove Patch) 1 ea TRDERM ONETIME ONE Stop: 04/03/17 21:01 Misoprostol (Cytotec) 25 mcg VAG .ONCE MALIK Last Admin: 04/02/17 20:05 Dose: 25 mcg Misoprostol (Cytotec) 25 mcg VAG Q6H PRN PRN Reason: Cervical Ripening Last Admin: 04/03/17 08:30 Dose: 25 mcg Nalbuphine HCl (Nubain) 10 mg IVPUSH ASDIRECTED PRN PRN Reason: Pain (severe 7-10) Nicotine (Habitrol) 21 mg TRDERM ONETIME ONE Stop: 04/02/17 20:51 Last Admin: 04/03/17 09:05 Dose: 21 mg Nicotine (Habitrol) 21 mg TRDERM ONETIME ONE Stop: 04/03/17 09:01 Ropivacaine (Naropin 0.2%) Confirm Administered Dose 20 ml .ROUTE .STK-MED ONE Stop: 04/03/17 15:59 Last Admin: 04/04/17 00:01 Dose: Not Given Sodium Chloride (Saline Flush) 2.5 ml FLUSH ASDIRECTED PRN PRN Reason: Keep Vein Open Sterile Water (Sterile Water For Irrigation) 1,000 ml IRR ASDIRECTED PRN PRN Reason: delivery Terbutaline Sulfate (Brethine) 0.25 mg SUBCUT ASDIRECTED PRN PRN Reason: Tacysystole - Interaction Infant Disposition, : [place] in Room with Family Infant Interaction: Holding Infant Infant Feeding: Attempted ; Nursed Fair/Poor Support Person: , Mother, Sister - Recovery Exam Fundal Tone: Firm Fundal Level: At Umbilicus Fundal Placement: Midline Lochia Amount: Scant Lochia Color: Rubra/Red Perineum Description: Intact, Minimal Bruising/Swelling Other Perinuem Description: 2nd degree laceration Episiotomy/Laceration: Approximated Bladder Status: Voiding Urinary Elimination: Voided - Exam General: Alert, Oriented HEENT: Pupils Equal Neck: Supple Lungs: Clear to Auscultation, Normal Respiratory Effort Cardiovascular: Regular Rate, Regular Rhythm GI/Abdominal Exam: Normal Bowel Sounds, Soft, Non-Tender, No Organomegaly, No Distention, No Abnormal Bruit, No Mass, Pelvis Stable Extremities: Normal Inspection, Normal Range of Motion, Non-Tender, No Pedal Edema, Normal Capillary Refill Skin: Warm, Dry, Intact Wound/Incisions: Healing Well Neurological: No New Focal Deficit Psy/Mental Status: Alert, Normal Affect, Normal Mood - Problem List Review Problem List Initiated/Reviewed/Updated: Yes - Assessment Assessment:: PPD 2 status post Preeclampsia--blood pressures remain elevated Tobacco dependence Depression/anxiety disorder - Plan Plan:: Blood pressures became more elevated yesterday and through the night in the 130- 150s/80-90s range. Given persistently elevated pressures, will start beta keli and monitor. Smoking cessation advised, discussed weaning to less than 5 cigarettes per day since patient has removed nicotine patch. Patient has resumed her sertraline--discussed monitoring mood closely as may need dose adjustment in period. Patient and voice their understanding to plan of care and are agreeable. Dr Arciniega/S Giraldo to assume care in am. Dr. Arciniega Patient is being stabilized in the last 24 hour on labetalol HCL 100 mg by mouth twice a day I am Unasyn the patient home today on the same medication and advised her to minimize her activity and have as much bedrest as she can. I am also schedule her for follow-up appointment in 1 week to reevaluate her blood pressure
== END 2017-04-06 11:15 | disposition home or self-care (01) | DRG 775 ==
LOC: MW.OBCHECK 14:57 → UNDOADMOB 15:02 → MW.OB 15:02 → MW.OBCHECK 15:28 → INTOOBSV 18:55 → OBSVTOIN 18:55 → MW.OB 04-03 18:29 → OBSVTOIN 04-03 18:29 → MW.OB 04-03 22:51 → UNDODISIN 04-06 11:15
PROVIDERS: ADMIT Obstetrics & Gynecology; ATTEND Obstetrics & Gynecology
PROC: 10E0XZZ Delivery of Products of Conception, External Approach (ICD-10-PCS; principal; 2017-04-02)
PROC: 0KQM0ZZ Repair Perineum Muscle, Open Approach (ICD-10-PCS; 2017-04-02)
PROC: 3E0P7VZ Introduction of Hormone into Female Reproductive, Via Natural or Artificial Opening (ICD-10-PCS; 2017-04-02)
PROC: 3E0P3VZ Introduction of Hormone into Female Reproductive, Percutaneous Approach (ICD-10-PCS; 2017-04-02)
DX: O14.94 Unspecified pre-eclampsia, complicating childbirth (principal); O70.1 Second degree perineal laceration during delivery; O99.334 Smoking (tobacco) complicating childbirth; O99.344 Other mental disorders complicating childbirth; Z3A.36 36 weeks gestation of pregnancy; Z37.0 Single live birth; O13.3 Gestational [pregnancy-induced] hypertension without significant proteinuria, third trimester; O76 Abnormality in fetal heart rate and rhythm complicating labor and delivery
CPT/HCPCS: 01967; 36415; 51702; 59025; 59409; 80053; 83615; 83735; 84156; 84550; 85027; 86850; 86900; 86901; A9270-GY; J2590; J3475; J7040; J7120

== ENCOUNTER 2019-07-09 22:50 | Inpatient (IN) | payer OTHER ==
[2019-07-09] MEDS ORDERED: Sodium Chloride 0.9% 2.5 ML Syringe FLUSH PRN (23:14)
[2019-07-09] MEDS ORDERED: Water For Irrigation,Sterile 1,000 ML Container IRR PRN (23:14)
[2019-07-09] MEDS ORDERED: Nalbuphine 10 MG/1 ML Vial IVPUSH PRN (23:14)
[2019-07-09] MEDS ORDERED: Lidocaine 1% 50 ML MDV INJECT PRN (23:14)
[2019-07-09] MEDS ORDERED: Methylergonovine 0.2 MG/1 ML Amp IM PRN (23:14)
[2019-07-09] MEDS ORDERED: Sodium Chloride 0.9% 10 ML SDV IV PRN (23:14)
[2019-07-09] MEDS ORDERED: Tranexamic Acid 1,000 MG in Sodium Chloride 0.9% 100 ML IV PRN (23:14)
[2019-07-09] MEDS ORDERED: Misoprostol 200 MCG Tab PO PRN (23:14)
[2019-07-09] MEDS ORDERED: Sodium Chloride 0.9% 10 ML Syringe FLUSH PRN (23:14)
[2019-07-09] MEDS ORDERED: Butorphanol 1 MG/ML SDV IVPUSH PRN (23:14)
[2019-07-09] MEDS ORDERED: Carboprost Tromethamine 250 MCG/1 ML Amp IM PRN (23:14)
[2019-07-09] MEDS ORDERED: Ondansetron 4 MG/2 ML SDV IVPUSH PRN (23:14)
[2019-07-09] MEDS ORDERED: Lactated Ringers 1,000 ML IV SCH (23:15)
[2019-07-09] MEDS ORDERED: Oxytocin/0.9 % Sodium Chloride 30 UNIT/500 ML BAG IV SCH (23:15)
[2019-07-09] MEDS ORDERED: Oxytocin 10 Units/1 ML SDV ONE ×2 (23:41)
[2019-07-09] MEDS ORDERED: Oxytocin 10 Units/1 ML SDV IM ONE (23:50)
[2019-07-10] MEDS ORDERED: Witch Hazel Medicated Pads 40/Jar TOP PRN (00:02)
[2019-07-10] MEDS ORDERED: oxyCODONE 5 MG Tab PO PRN (00:02)
[2019-07-10] MEDS ORDERED: Ibuprofen 400 MG Tab PO PRN (00:02)
[2019-07-10] MEDS ORDERED: Benzocaine/Menthol 20%-0.5% Spray 78 GM Cannister TOP PRN (00:02)
[2019-07-10] MEDS ORDERED: Bisacodyl 10 MG Supp RECTAL PRN (00:02)
[2019-07-10] MEDS ORDERED: Lanolin 100% Cream 7 GM Tube TOP PRN (00:02)
[2019-07-10] MEDS ORDERED: Acetaminophen 500 MG Tab PO PRN ×2 (00:02)
--- NOTE | 2019-07-10 00:10 | PCM.OPNOTE ---
- General Post-Op/Procedure Note Date of Surgery/Procedure: 07/10/19 Operative Procedure(s): /2nd MLL repaired--precipitous Findings: Viable female APGARs 7, 9 weight 3160 gm. Spontaneous delivery intact placenta with 3V cord. Meconium stained fluid Pre Op Diagnosis: 38 week IUP. Active labor Post-Op Diagnosis: Same Anesthesia Technique: Local Primary Surgeon: Dipti Gramajo EBL in mLs: 300 Complications: none known Condition: Stable Free Text/Narrative:: Dictation [id number]
--- NOTE | 2019-07-10 06:13 | OR ---
SURGEON: Dipti Gramajo M.D. DATE OF PROCEDURE: 07/10/2019 PREOPERATIVE DIAGNOSES: 1. 38-week intrauterine . 2. Active labor. POSTOPERATIVE DIAGNOSES: 1. 38-week intrauterine . 2. Active labor. PROCEDURE: Spontaneous vaginal delivery, second-degree midline laceration repaired, precipitous delivery. PRIMARY SURGEON: Dipti Gramajo M.D. ANESTHESIA: Local. ESTIMATED BLOOD LOSS: 300 mL. COMPLICATIONS: None known. FINDINGS: Viable female, score 7 at 1 minute and 9 at 5 minutes, weight of 3160 g. Spontaneous delivery, intact placenta, 3-vessel cord. Meconium-stained amniotic fluid. DISPOSITION: to nursery, mom in LDRP, stable. PROCEDURE DETAILS: Mona is a 29-year-old, , at 38 weeks' gestational age, who presents on the evening of 07/10/2019 with regular contractions that started at approximately 8:30 p.m., becoming much more intense by approximately 9:30 p.m., presented to Labor and Delivery shortly before 11:00 p.m. On her initial examination, heart tones were 120s with variability. She was found to be 6 cm dilated. She is group B beta strep negative. Therefore, she was admitted, routine labs were drawn. She was 9 cm and delivered precipitously at 2328. Upon my arrival, the cord had been clamped x2 and cut by the attending nursing staff, and was on the warmer. The infant had been delivered en caul with attending nursing staff present. Meconium-stained fluid was noted. Cord arterial blood was obtained. Light pressure was applied while the placenta was delivered spontaneously intact. About 10 units of Pitocin was delivered via IM as we had not been able to establish IV access for the patient yet. Vigorous fundal uterine massage was then applied. Lochia was found to be appropriate. Upon inspection of cervix, vaginal sidewall, and perineum, there was found to be a second-degree midline laceration. Therefore, 10 mL of 1% lidocaine was infiltrated around this region and the laceration was repaired using 3-0 Vicryl in the usual fashion. Uterus remained firm. Hemostasis appeared evident. The patient has tolerated this procedure well. She will remain in LDRP. Infant to remain with her with attending nursing staff at her side. BUCKBSYOSHI / MODL /[id number]
[2019-07-10] MEDS: Docusate Sodium 100 MG Cap PO PRN ×2 (07:57→20:35)
--- NOTE | 2019-07-10 16:41 | PCM.PNPP ---
- General Info Date of Service: 07/10/19 Functional Status: Reports: Pain Controlled, Tolerating Diet, Ambulating, Urinating - Review of Systems General: Denies: Fever, Weakness, Fatigue Pulmonary: Denies: Shortness of Breath Cardiovascular: Denies: Chest Pain, Palpitations Gastrointestinal: Reports: Constipation. Denies: Abdominal Pain, Nausea, Vomiting Genitourinary: Reports: No Symptoms Musculoskeletal: Reports: No Symptoms Skin: Reports: No Symptoms Neurological: Reports: No Symptoms Psychiatric: Reports: No Symptoms - General Info Date of Service: 07/10/19 - Patient Data Vital Signs - Most Recent: Last Vital Signs Temp 36.4 C 07/10/19 08:00 Pulse 84 07/10/19 08:00 Resp 17 07/10/19 08:00 BP 130/80 07/10/19 08:00 Pulse Ox 98 07/10/19 08:00 Weight - Most Recent: 98.883 kg Lab Results - Last 24 Hours: Laboratory Results - last 24 hr 07/09/19 07/09/19 07/10/19 Range/Units 23:25 23:25 13:25 WBC 10.38 (4.0-11.0) K/uL RBC 4.27 L (4.30-5.90) M/uL Hgb 14.0 12.5 (12.0-16.0) g/dL Hct 40.7 36.8 (36.0-46.0) % MCV 95.3 (80.0-98.0) fL MCH 32.8 H (27.0-32.0) pg MCHC 34.4 (31.0-37.0) g/dL RDW Std Deviation 50.0 (28.0-62.0) fl RDW Coeff of Hitesh 15 (11.0-15.0) % Plt Count 273 (150-400) K/uL MPV 10.40 (7.40-12.00) fL Nucleated RBC % 0.0 /100WBC Nucleated RBCs # 0 K/uL Blood Type A POSITIVE Antibody Screen NEGATIVE Med Orders - Current: Current Medications Acetaminophen (Tylenol Extra Strength) 500 mg PO Q4H PRN PRN Reason: Pain Acetaminophen (Tylenol Extra Strength) 1,000 mg PO Q4H PRN PRN Reason: Pain Benzocaine/Menthol (Dermoplast Pain Relief 20%-0.5% Lolita) 78 gm TOP ASDIRECTED PRN PRN Reason: Perineal Comfort Measure Bisacodyl (Dulcolax) 10 mg RECTAL ONETIME PRN PRN Reason: Constipation Carboprost Tromethamine (Hemabate Ds) 250 mcg IM ASDIRECTED PRN PRN Reason: Post Hemorrhage Docusate Sodium (Colace) 100 mg PO BID PRN PRN Reason: Constipation Last Admin: 07/10/19 07:57 Dose: 100 mg Emollient Ointment (Lansinoh Hpa) 0 gm TOP ASDIRECTED PRN PRN Reason: Sore Nipples Lactated Ringer's (Ringers, Lactated) 1,000 mls @ 150 mls/hr IV ASDIRECTED MALIK Oxytocin/Sodium Chloride (Oxytocin 30 Unit/500 Ml-Ns) 30 unit in 500 mls @ 999 mls/hr IV TITRATE MALIK Tranexamic Acid 1,000 mg/ (Sodium Chloride) 110 mls @ 660 mls/hr IV ONETIME PRN PRN Reason: Bleeding Ibuprofen (Motrin) 400 mg PO Q4H PRN PRN Reason: Pain Ibuprofen (Motrin) 800 mg PO Q6H PRN PRN Reason: Pain Lidocaine HCl (Xylocaine 1%) 50 ml INJECT ONETIME PRN PRN Reason: Laceration repair Last Admin: 07/09/19 23:50 Dose: 50 ml Methylergonovine Maleate (Methergine) 0.2 mg IM ASDIRECTED PRN PRN Reason: Post Hemorrhage Ondansetron HCl (Zofran) 4 mg IVPUSH Q6H PRN PRN Reason: Nausea/Vomiting Oxycodone HCl (Oxycodone) 5 mg PO Q2H PRN PRN Reason: Pain Sodium Chloride (Saline Flush) 10 ml FLUSH ASDIRECTED PRN PRN Reason: Keep Vein Open Sodium Chloride (Saline Flush) 2.5 ml FLUSH ASDIRECTED PRN PRN Reason: Keep Vein Open Sodium Chloride (Normal Saline) 10 ml IV ASDIRECTED PRN PRN Reason: IV Use Sterile Water (Sterile Water For Irrigation) 1,000 ml IRR ASDIRECTED PRN PRN Reason: delivery Last Admin: 07/10/19 00:05 Dose: 1,000 ml Witch Radha (Tucks) 1 pad TOP ASDIRECTED PRN PRN Reason: comfort care Discontinued Medications Butorphanol Tartrate (Stadol) 1 mg IVPUSH Q1H PRN PRN Reason: Pain Stop: 07/10/19 00:01 Misoprostol (Cytotec) 200 mcg PO ONETIME PRN PRN Reason: Post Hemorrhage Nalbuphine HCl (Nubain) 10 mg IVPUSH Q1H PRN PRN Reason: Pain (severe 7-10) Oxytocin (Pitocin) 10 unit IM ONETIME ONE Stop: 07/09/19 23:51 Last Admin: 07/10/19 00:03 Dose: 10 unit Oxytocin (Pitocin) Confirm Administered Dose 10 unit .ROUTE .STK-MED ONE Stop: 07/09/19 23:42 Oxytocin (Pitocin) Confirm Administered Dose 10 unit .ROUTE .STK-MED ONE Stop: 07/09/19 23:42 - Interaction Support Person: , Mother, Sister - Recovery Exam Fundal Tone: Firm Fundal Level: At Umbilicus Fundal Placement: Midline Lochia Amount: Small Lochia Color: Rubra/Red Episiotomy/Laceration: Approximated Bladder Status: Voiding Urinary Elimination: Voided - Exam General: Alert, Oriented Lungs: Normal Respiratory Effort Cardiovascular: Regular Rate, Regular Rhythm GI/Abdominal Exam: Soft, Non-Tender Extremities: Pedal Edema (trace). No: Charissa's Sign Skin: Warm, Dry, Intact Neurological: No New Focal Deficit Psy/Mental Status: Alert, Normal Affect, Normal Mood - Problem List & Annotations (1) Vaginal delivery SNOMED Code(s): 175693407 Code(s): O80 - ENCOUNTER FOR FULL-TERM UNCOMPLICATED DELIVERY Status: Acute Current Visit: Yes - Problem List Review Problem List Initiated/Reviewed/Updated: Yes - My Orders Last 24 Hours: My Active Orders 07/09/19 23:14 Patient Status [ADT] Routine Heart Tones [RC] CONTINUOUS Non Stress Test [RC] PER UNIT ROUTINE May Shower [RC] ASDIRECTED Notify Provider [RC] PRN Up ad Yolis [RC] ASDIRECTED Vaginal Exam [RC] PRN Vital Signs [RC] PER UNIT ROUTINE Carboprost Tromethamine [Hemabate DS] 250 mcg IM ASDIRECTED PRN Lidocaine 1% [Xylocaine 1%] 50 ml INJECT ONETIME PRN Methylergonovine [Methergine] 0.2 mg IM ASDIRECTED PRN Ondansetron [Zofran] 4 mg IVPUSH Q6H PRN Sodium Chloride 0.9% [Normal Saline] 10 ml IV ASDIRECTED PRN Sodium Chloride 0.9% [Saline Flush] 10 ml FLUSH ASDIRECTED PRN Sodium Chloride 0.9% [Saline Flush] 2.5 ml FLUSH ASDIRECTED PRN Tranexamic Acid [Cyklokapron] 1,000 mg Sodium Chloride 0.9% [Normal Saline] 100 ml IV ONETIME Water For Irrigation,Sterile [Sterile Water for Irrigation] 1,000 ml IRR ASDIRECTED PRN Scalp Electrode [WOMSER] Per Unit Routine Peripheral IV Insertion Adult [OM.PC] Routine Resuscitation Status Routine 07/09/19 23:15 Ready for Discharge [RC] PER UNIT ROUTINE Lactated Ringers [Ringers, Lactated] 1,000 ml IV ASDIRECTED Oxytocin/0.9 % Sodium Chloride [Oxytocin 30 Unit/500 ML-NS] 30 unit in 500 ml IV TITRATE 07/09/19 23:25 RAPID PLASMA REAGIN, QUANT [REF] Routine 07/10/19 00:02 Patient Status [ADT] Routine May Shower [RC] ASDIRECTED Notify Provider Vital Signs [RC] ASDIRECTED Up ad Yolis [RC] ASDIRECTED Vital Signs [RC] PER UNIT ROUTINE Acetaminophen [Tylenol Extra Strength] 1,000 mg PO Q4H PRN Acetaminophen [Tylenol Extra Strength] 500 mg PO Q4H PRN Benzocaine/Menthol [Dermoplast Pain Relief 20%-0.5% Lolita] 78 gm TOP ASDIRECTED PRN Docusate Sodium [Colace] 100 mg PO BID PRN Ibuprofen [Motrin] 400 mg PO Q4H PRN Ibuprofen [Motrin] 800 mg PO Q6H PRN Lanolin [Lansinoh HPA] See Dose Instructions TOP ASDIRECTED PRN Witch Radha [Tucks] 1 pad TOP ASDIRECTED PRN bisacodyL [Dulcolax] 10 mg RECTAL ONETIME PRN oxyCODONE 5 mg PO Q2H PRN Assess Lochia [WOMSER] Per Unit Routine Assess Uterine Involution [WOMSER] Per Unit Routine Peripheral IV Discontinue [OM.PC] Routine 07/10/19 00:03 Ice Therapy [OM.PC] Per Unit Routine Perineal Care [OM.PC] Per Unit Routine Sitz Bath [OM.PC] Per Unit Routine 07/10/19 Breakfast Regular Diet [DIET] - Assessment Assessment:: PPD 1 status post - Plan Plan:: Lianet ROGERS cares. VS and labs are stable. Anticipate discharge in the morning.
[2019-07-10] MEDS: Ibuprofen 800 MG Tab PO PRN (20:36)
--- NOTE | 2019-07-11 08:17 | PCM.PNPP ---
- General Info Date of Service: 07/11/19 Admission Dx/Problem (Free Text): PPD#2, well, minimal lochia, minimal pain, no complaints. Functional Status: Reports: Pain Controlled - Review of Systems General: Reports: No Symptoms HEENT: Reports: No Symptoms Pulmonary: Reports: No Symptoms Cardiovascular: Reports: No Symptoms Gastrointestinal: Reports: No Symptoms Genitourinary: Reports: No Symptoms Musculoskeletal: Reports: No Symptoms Skin: Reports: No Symptoms Neurological: Reports: No Symptoms Psychiatric: Reports: No Symptoms - Patient Data Vital Signs - Most Recent: Last Vital Signs Temp 36.6 C 07/11/19 04:30 Pulse 73 07/11/19 04:30 Resp 14 07/11/19 04:30 BP 124/69 07/11/19 04:30 Pulse Ox 98 07/11/19 04:30 Weight - Most Recent: 98.883 kg Lab Results - Last 24 Hours: Laboratory Results - last 24 hr 07/10/19 Range/Units 13:25 Hgb 12.5 (12.0-16.0) g/dL Hct 36.8 (36.0-46.0) % Med Orders - Current: Current Medications Acetaminophen (Tylenol Extra Strength) 500 mg PO Q4H PRN PRN Reason: Pain Acetaminophen (Tylenol Extra Strength) 1,000 mg PO Q4H PRN PRN Reason: Pain Benzocaine/Menthol (Dermoplast Pain Relief 20%-0.5% [place]) 78 gm TOP ASDIRECTED PRN PRN Reason: Perineal Comfort Measure Last Admin: 07/10/19 20:36 Dose: 1 can Bisacodyl (Dulcolax) 10 mg RECTAL ONETIME PRN PRN Reason: Constipation Carboprost Tromethamine (Hemabate Ds) 250 mcg IM ASDIRECTED PRN PRN Reason: Post Hemorrhage Docusate Sodium (Colace) 100 mg PO BID PRN PRN Reason: Constipation Last Admin: 07/10/19 20:35 Dose: 100 mg Emollient Ointment (Lansinoh Hpa) 0 gm TOP ASDIRECTED PRN PRN Reason: Sore Nipples Lactated Ringer's (Ringers, Lactated) 1,000 mls @ 150 mls/hr IV ASDIRECTED MALIK Oxytocin/Sodium Chloride (Oxytocin 30 Unit/500 Ml-Ns) 30 unit in 500 mls @ 999 mls/hr IV TITRATE MALIK Tranexamic Acid 1,000 mg/ (Sodium Chloride) 110 mls @ 660 mls/hr IV ONETIME PRN PRN Reason: Bleeding Ibuprofen (Motrin) 400 mg PO Q4H PRN PRN Reason: Pain Ibuprofen (Motrin) 800 mg PO Q6H PRN PRN Reason: Pain Last Admin: 07/10/19 20:36 Dose: 800 mg Lidocaine HCl (Xylocaine 1%) 50 ml INJECT ONETIME PRN PRN Reason: Laceration repair Last Admin: 07/09/19 23:50 Dose: 50 ml Methylergonovine Maleate (Methergine) 0.2 mg IM ASDIRECTED PRN PRN Reason: Post Hemorrhage Ondansetron HCl (Zofran) 4 mg IVPUSH Q6H PRN PRN Reason: Nausea/Vomiting Oxycodone HCl (Oxycodone) 5 mg PO Q2H PRN PRN Reason: Pain Sodium Chloride (Saline Flush) 10 ml FLUSH ASDIRECTED PRN PRN Reason: Keep Vein Open Sodium Chloride (Saline Flush) 2.5 ml FLUSH ASDIRECTED PRN PRN Reason: Keep Vein Open Sodium Chloride (Normal Saline) 10 ml IV ASDIRECTED PRN PRN Reason: IV Use Sterile Water (Sterile Water For Irrigation) 1,000 ml IRR ASDIRECTED PRN PRN Reason: delivery Last Admin: 07/10/19 00:05 Dose: 1,000 ml Witch Radha (Tucks) 1 pad TOP ASDIRECTED PRN PRN Reason: comfort care Last Admin: 07/10/19 20:36 Dose: 1 tub Discontinued Medications Butorphanol Tartrate (Stadol) 1 mg IVPUSH Q1H PRN PRN Reason: Pain Stop: 07/10/19 00:01 Misoprostol (Cytotec) 200 mcg PO ONETIME PRN PRN Reason: Post Hemorrhage Nalbuphine HCl (Nubain) 10 mg IVPUSH Q1H PRN PRN Reason: Pain (severe 7-10) Oxytocin (Pitocin) 10 unit IM ONETIME ONE Stop: 07/09/19 23:51 Last Admin: 07/10/19 00:03 Dose: 10 unit Oxytocin (Pitocin) Confirm Administered Dose 10 unit .ROUTE .STK-MED ONE Stop: 07/09/19 23:42 Oxytocin (Pitocin) Confirm Administered Dose 10 unit .ROUTE .STK-MED ONE Stop: 07/09/19 23:42 - Infant Interaction Disposition, : in Room with Family Feeding: Breastfed Infant; Nursed Well Support Person: , Mother, Sister - Recovery Exam Fundal Tone: Firm Fundal Level: At Umbilicus Fundal Placement: Midline Lochia Amount: Small Lochia Color: Alba/White Episiotomy/Laceration: Approximated Bladder Status: Nonpalpable Urinary Elimination: Voided - Exam General: Alert, Oriented Neck: Supple Lungs: Normal Respiratory Effort GI/Abdominal Exam: Non-Tender, No Distention Extremities: Normal Inspection, Non-Tender, No Pedal Edema Skin: Warm, Dry, Intact Neurological: No New Focal Deficit Psy/Mental Status: Alert, Normal Affect, Normal Mood - Problem List & Annotations (1) Vaginal delivery SNOMED Code(s): 311424968 Code(s): O80 - ENCOUNTER FOR FULL-TERM UNCOMPLICATED DELIVERY Status: Acute Current Visit: Yes - Problem List Review Problem List Initiated/Reviewed/Updated: Yes - My Orders Last 24 Hours: My Active Orders 07/11/19 08:11 Ready for Discharge [RC] PER UNIT ROUTINE - Assessment Assessment:: PPD 2 status post , stable, would like to go home. - Plan Plan:: Dismiss to home today. Discharge instructions reviewed.
[2019-07-11] MEDS: Ibuprofen 800 MG Tab PO PRN (08:54)
== END 2019-07-11 11:10 | disposition home or self-care (01) | DRG 807 ==
LOC: MW.OBCHECK 22:50 → MW.OB 22:52 → MW.OBCHECK 23:14 → OBSVTOIN 23:28 → MW.OB 07-10 02:24
PROVIDERS: ADMIT Obstetrics & Gynecology; ATTEND Obstetrics & Gynecology
PROC: 10E0XZZ Delivery of Products of Conception, External Approach (ICD-10-PCS; principal; 2019-07-09)
PROC: 0KQM0ZZ Repair Perineum Muscle, Open Approach (ICD-10-PCS; 2019-07-09)
DX: O62.3 Precipitate labor (principal); Z37.0 Single live birth; O77.0 Labor and delivery complicated by meconium in amniotic fluid; Z3A.38 38 weeks gestation of pregnancy; O70.1 Second degree perineal laceration during delivery
CPT/HCPCS: 36415; 59025; 59409; 85014; 85018; 85027; 86592; 86593; 86850; 86900; 86901; A9270-GY; J2001; J2590